=== PATIENT | female | born 1990 | race Caucasian/White ===

== ENCOUNTER 2016-04-08 20:52 | Outpatient (CLI) | payer MEDICAID ==
[2016-04-08 21:10] VITALS: BP 110/56
[2016-04-08] MEDS ORDERED: LACTATED RINGERS 1,000 ML IV ONE (21:20)
[2016-04-08 21:41] LABS: Bilirubin,Urine NEG (Negative); Blood,Urine SM (Negative); Ketones,Urine NEG (Negative); Leukocyte Esterase,Urine NEG (Negative); Nitrite,Urine NEG (Negative); Protein,Urine <15 mg/dL mg/dL (Negative); Urobilinogen,Urine < 2.0 mg/dL (<2.0)
[2016-04-08] MEDS ORDERED: BRETHINE ONE (22:51)
[2016-04-08] MEDS ORDERED: LACTATED RINGERS 1,000 ML IV SCH (23:00)
[2016-04-08] MEDS: BRETHINE SUB-Q SCH ×2 (23:00→23:43)
[2016-04-08 23:08] LABS: Hematocrit 33.7 % (30.3-42.9); Hemoglobin 11.4 gm/dl (10.1-14.3); Mean Corpuscular HGB Conc 34 % (30-34); Mean Corpuscular Hemoglobin 29 pg (28-32); Mean Corpuscular Volume 87 fl (79-97); Platelet Count 187 K/mm3 (140-440); Red Blood Count 3.88 M/mm3 (3.65-5.03); Red Cell Distribution Width 12.8 % (13.2-15.2); White Blood Count 12.9 K/mm3 (4.5-11.0)
[2016-04-09 01:03] LABS: Alanine Aminotransferase 10 units/L (7-56); Albumin 3.2 g/dL (3.9-5); Albumin/Globulin Ratio 0.9 %; Alkaline Phosphatase 81 units/L (35-129); Anion Gap 18 mmol/L; BUN/Creatinine Ratio 16.66; Bilirubin,Total 0.3 mg/dL (0.1-1.2); Blood Urea Nitrogen 5 mg/dL (7-17); Calcium 8.1 mg/dL (8.4-10.2); Carbon Dioxide 20 mmol/L (22-30); Chloride 97.3 mmol/L (98-107); Glucose 74 mg/dL (65-100); Potassium 3.4 mmol/L (3.6-5.0); Sodium 132 mmol/L (137-145); Total Protein 6.6 g/dL (6.3-8.2)
== END 2016-04-09 01:25 | disposition home or self-care (01) ==
LOC: TRG 20:52
PROVIDERS: ATTEND Obstetrics & Gynecology
DX: O21.2 Late vomiting of pregnancy (principal); O77.9 Labor and delivery complicated by fetal stress, unspecified; Z3A.29 29 weeks gestation of pregnancy
CPT/HCPCS: 36415; 59025; 80053; 81001; 85027; 96360; 96372; J3105; J7120

== ENCOUNTER 2016-06-15 11:04 | Outpatient (CLI) | payer MEDICAID ==
[2016-06-15] MEDS ORDERED: NITRATEST PAPER MC ONE (12:30)
== END 2016-06-15 14:36 | disposition home or self-care (01) ==
LOC: TRG 11:04
PROVIDERS: ATTEND Obstetrics & Gynecology
DX: O47.1 False labor at or after 37 completed weeks of gestation (principal); Z3A.38 38 weeks gestation of pregnancy
CPT/HCPCS: 59025